=== PATIENT | female | born 1955 | race Caucasian/White ===

== ENCOUNTER 2019-03-05 08:01 | Day surgery (SDC) | payer BC, OTHER ==
[2019-03-04 11:40] LABS: BASOPHILS # (AUTO) 0.1 X10'3 (0-0.2); BASOPHILS % (AUTO) 1.2 % (0-1); EOSINOPHILS # (AUTO) 0.1 X10'3 (0-0.9); EOSINOPHILS % (AUTO) 1.3 % (0-6); LYMPHOCYTES # (AUTO) 1.6 X10'3 (1.1-4.8); LYMPHOCYTES % (AUTO) 31.6 % (21-51); MEAN CORPUSCULAR HEMOGLOBIN 31.8 PG (27.0-31.0); MEAN CORPUSCULAR HGB CONC 33.8 g/dL (33.0-36.5); MEAN CORPUSCULAR VOLUME 94.1 FL (78-98); MEAN PLATELET VOLUME 8.3 FL (7.4-10.4); MONOCYTES # (AUTO) 0.5 X10'3 (0-0.9); MONOCYTES % (AUTO) 9.6 % (2-12); NEUTROPHILS # (AUTO) 2.9 X10'3 (1.8-7.7); NEUTROPHILS % (AUTO) 56.3 % (42-75); PRE OP HEMATOCRIT 42.1 % (35.0-45.0); PRE OP HEMOGLOBIN 14.2 g/dL (12.0-16.0); PRE OP PLATELET COUNT 260 X10'3 (140-440); RED BLOOD COUNT 4.47 X10'6 (4.20-5.60); RED CELL DISTRIBUTION WIDTH 13.1 % (11.5-14.5)
[2019-03-04 11:59] LABS: ALBUMIN 4.1 G/DL (3.4-5.0); ALBUMIN/GLOBULIN RATIO 1.1 (1.1-1.5); ALKALINE PHOSPHATASE 80 IU/L (46-116); BLOOD UREA NITROGEN 15 MG/DL (7-18); BUN/CREATININE RATIO 15.8 (6.6-38.0); CALCIUM 9.1 MG/DL (8.5-10.1); CHLORIDE 108 MMOL/L (99-107); CREATININE 0.95 MG/DL (0.40-0.90); PRE OP ALT 27 U/L (30-65); PRE OP ANION GAP 7 (8-16); PRE OP AST 21 U/L (10-37); PRE OP BILIRUB, TOTAL 0.7 MG/DL (0.0-1.0); PRE OP GLUCOSE 81 MG/DL (70-104); PRE OP POTASSIUM 4.2 MMOL/L (3.4-5.1); PRE OP SODIUM 145 MMOL/L (135-145); eGFR 60 ML/MIN
[~2019-03-05] VITALS: Ht 172.7 cm; Wt 91.4 kg
[2019-03-05] VITALS (8 sets, daily range): BP systolic 115–139; BP diastolic 70–82
[~2019-03-05 08:01] MED LIST: ASPI81TA52 PO; BUPIVAcaine/PF 2.5mg/ml (0.25%) 10ml vial ONE; CALCIUM PO; CHOL200052 PO; KRILL PO; LEVO50TA PO; LIDOcaine 0.5% (5mg/ml) 50ml vial ONE; MULT-933 PO; VIT B PO; cefazolin/dext.iso 2gm/100ml 100 ML IV ONE; famotidine 10mg tablet PO ONE; ringers solution, lacted 1,000 ML IV SCH
[2019-03-05] MEDS ORDERED: ringers solution, lacted 1,000 ML IV SCH (09:40)
[2019-03-05] MEDS ORDERED: labetalol 20mg/4ml (5mg/ml) syringe IV PRN (09:40)
[2019-03-05] MEDS ORDERED: morphine 4 MG/ML inj SYRINge IV PRN ×2 (09:40)
[2019-03-05] MEDS ORDERED: ondansetron/PF 4mg/2ml inj IV PRN (09:40)
[2019-03-05] MEDS ORDERED: fentaNYL/PF 50MCG/1 ML 2ML syringe ONE (11:28)
[2019-03-05] MEDS ORDERED: midazolam 2 mg/2 ml injection ONE (11:28)
--- NOTE | 2019-03-05 11:48 | NUR ---
Received from OR via [facility], accompanied by Anesthesiologist DR KOENIG and report given by Anesthesiologist. 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 Addendum: 03/05/19 at 1215 by Cindy Walker RN Amended: Links added.
--- NOTE | 2019-03-05 12:48 | NUR ---
D/C INSTRUCTIONS GIVEN AND GONE OVER W/PT WHO VERBALIZED UNDERSTANDING, PT D/CD TO HOME VIA W/C TO PRIVATE VEHICLE W/O INCIDENT. Addendum: 03/05/19 at 1258 by Cindy Walker RN Amended: Links added.
== END 2019-03-05 12:48 | disposition home or self-care (01) ==
LOC: PAS 08:01
PROVIDERS: ATTEND Orthopaedic Surgery Hand Surgery
DX: G56.01 Carpal tunnel syndrome, right upper limb (principal); G47.33 Obstructive sleep apnea (adult) (pediatric); F17.210 Nicotine dependence, cigarettes, uncomplicated; Z86.14 Personal history of Methicillin resistant Staphylococcus aureus infection; Z88.2 Allergy status to sulfonamides; Z79.899 Other long term (current) drug therapy; Z79.82 Long term (current) use of aspirin; Z98.890 Other specified postprocedural states
CPT/HCPCS: 36415; 64721; 80053; 82948; 85025; 93005; A6222; J2001; J2250; J3010; J3490; A4215; A6449; J7120

== ENCOUNTER 2019-08-20 05:28 | Day surgery (SDC) | payer BC ==
[2019-08-16 10:04] LABS: BASOPHILS % (AUTO) 0.8 % (0-1); EOSINOPHILS # (AUTO) 0.1 X10'3 (0-0.9); EOSINOPHILS % (AUTO) 2.7 % (0-6); LYMPHOCYTES # (AUTO) 1.5 X10'3 (1.1-4.8); LYMPHOCYTES % (AUTO) 30.3 % (21-51); MEAN CORPUSCULAR HEMOGLOBIN 31.6 PG (27.0-31.0); MEAN CORPUSCULAR HGB CONC 32.9 g/dL (33.0-36.5); MEAN CORPUSCULAR VOLUME 95.8 FL (78-98); MONOCYTES # (AUTO) 0.6 X10'3 (0-0.9); MONOCYTES % (AUTO) 11.5 % (2-12); NEUTROPHILS # (AUTO) 2.7 X10'3 (1.8-7.7); NEUTROPHILS % (AUTO) 54.7 % (42-75); PRE OP HEMATOCRIT 43.1 % (35.0-45.0); PRE OP HEMOGLOBIN 14.2 g/dL (12.0-16.0); PRE OP PLATELET COUNT 283 X10'3 (140-440)
[2019-08-16 10:19] LABS: ALBUMIN 3.9 G/DL (3.4-5.0); ALKALINE PHOSPHATASE 81 IU/L (46-116); BLOOD UREA NITROGEN 11 MG/DL (7-18); BUN/CREATININE RATIO 11.6 (6.6-38.0); CALCIUM 9.7 MG/DL (8.5-10.1); CHLORIDE 109 MMOL/L (99-107); CREATININE 0.95 MG/DL (0.40-0.90); PRE OP ALT 29 U/L (30-65); PRE OP ANION GAP 6 (8-16); PRE OP AST 24 U/L (10-37); PRE OP BILIRUB, TOTAL 0.5 MG/DL (0.0-1.0); PRE OP GLUCOSE 82 MG/DL (70-104); PRE OP POTASSIUM 4.3 MMOL/L (3.4-5.1); PRE OP SODIUM 146 MMOL/L (135-145); TOTAL CARBON DIOXIDE 30.9 MMOL/L (24-32); TOTAL PROTEIN 7.7 G/DL (6.4-8.2); eGFR 59 ML/MIN
[~2019-08-20] VITALS: Ht 172.7 cm; Wt 91.4 kg
[~2019-08-20 05:28] MED LIST changes: -ASPI81TA52 PO; -BUPIVAcaine/PF 2.5mg/ml (0.25%) 10ml vial ONE; -CALCIUM PO; -CHOL200052 PO; -KRILL PO; -LIDOcaine 0.5% (5mg/ml) 50ml vial ONE; -VIT B PO; -cefazolin/dext.iso 2gm/100ml 100 ML IV ONE; -famotidine 10mg tablet PO ONE
[2019-08-20 05:30] VITALS: BP 133/73
[2019-08-20] MEDS ORDERED: famotidine 20mg tablet PO ONE (05:30)
[2019-08-20] MEDS ORDERED: LIDOcaine 1% (10mg/ml) 2ml vial ONE (05:53)
[2019-08-20] MEDS ORDERED: cefazolin/dext.iso 2gm/50ml 50 ML IV ONE (06:00)
[2019-08-20] MEDS ORDERED: BUPIVAcaine/PF 2.5 mg/ml (0.25%) 30ml vial ONE (06:34)
[2019-08-20] MEDS ORDERED: BUPIVAcaine/PF 2.5mg/ml (0.25%) 10ml vial ONE (06:34)
[2019-08-20] MEDS ORDERED: ringers solution, lacted 1,000 ML IV SCH (07:16)
[2019-08-20] MEDS ORDERED: ondansetron/PF 4mg/2ml inj IV PRN (07:20)
[2019-08-20] MEDS ORDERED: meperidine/PF 25mg/ml syringe IV PRN ×3 (07:20)
[2019-08-20] MEDS ORDERED: proCHLORperazine 10 MG/2 ml inj IV PRN (07:20)
[2019-08-20] MEDS ORDERED: morphine 4 MG/ML inj SYRINge IV PRN (07:20)
[2019-08-20] MEDS ORDERED: morphine 2 MG/ML inj. syringe IV PRN (07:20)
[2019-08-20] MEDS ORDERED: LIDOcaine 1% 30ml preserv. free vial ONE (07:22)
[2019-08-20] MEDS ORDERED: fentaNYL/PF 50MCG/1 ML 2ML syringe ONE (07:31)
[2019-08-20] MEDS ORDERED: midazolam 2 mg/2 ml injection ONE (07:32)
[2019-08-20] MEDS ORDERED: LIDOcaine 2% (20mg/ml) 5ml vial ONE (08:43)
[2019-08-20] MEDS ORDERED: propofol inj 20 ML IV ONE (08:43)
[2019-08-20] MEDS ORDERED: 0.9 % SODIUM CHLORIDE 10 ML VIAL ONE (08:50)
[2019-08-20] MEDS ORDERED: ketorolac trometh. 30mg/ml inj. ONE (08:53)
[2019-08-20 08:55] VITALS: BP 142/69
--- NOTE | 2019-08-20 08:55 | NUR ---
Received from OR via [facility] , accompanied by Anesthesiologist ADEBAYO and report given by Anesthesiolgist. PATIENT WITH 20G PIV IN RIGHT UE RUNNING LR AT 100, DENIES PAIN TO LEFT WRIST DRESSING THAT IS CDI. + CAP REFILL AND SENSATION. VSS. DONNED GLASSES UPON ARRIVAL . VSS. Addendum: 08/20/19 at 0902 by uYng Frederick RN, RN Amended: Links added.
[2019-08-20 09:05] VITALS: BP 127/78
[2019-08-20 09:15] VITALS: BP 126/73
--- NOTE | 2019-08-20 09:37 | NUR ---
\All dc criteria for discharge home has been met. IV taken out without complications. All questions answered regarding dc paperwork. Vss. Significant other present to take patient home. Dressings cdi and vital signs stable. Taken out via wheelchair to personal vehicle where patient taken home by family/friend. Addendum: 08/20/19 at 0938 by Yung Frederick RN, RN Amended: Links added.
== END 2019-08-20 09:25 | disposition home or self-care (01) ==
LOC: PAS 05:28
PROVIDERS: ATTEND Orthopaedic Surgery Hand Surgery
DX: G56.02 Carpal tunnel syndrome, left upper limb (principal); Z11.59 Encounter for screening for other viral diseases; Z98.890 Other specified postprocedural states; Z79.899 Other long term (current) drug therapy; Z72.89 Other problems related to lifestyle; Z80.9 Family history of malignant neoplasm, unspecified
CPT/HCPCS: 36415; 64721; 80053; 85025; A6222; J1885; J2001; J2250; J2704; J3010; J3490; U0003; A4215; A4615; A6449; J7120

== ENCOUNTER 2020-09-28 20:27 | Emergency (ER) | payer BC ==
[~2020-09-28] VITALS: Ht 172.7 cm; Wt 90.9 kg
[~2020-09-28 20:27] MED LIST changes: -ringers solution, lacted 1,000 ML IV SCH
[2020-09-28] MEDS ORDERED: bacitracin 15gm ointment TP ONE (23:30)
[2020-09-28] MEDS ORDERED: LIDOcaine 1% W/epiNEPHrine 1:200,000 10ml vial IJ ONE (23:30)
[2020-09-28] MEDS ORDERED: TETanus/Pertussis (Acell)/Diphther VAC/PF (Tdap-Adult) 0.5ml syringe IMVAC ONE (23:30)
--- NOTE | 2020-09-29 00:10 | NUR ---
ED provider at bedside suturing laceration- patient tolerating well.
[2020-09-29 00:47] VITALS: BP 119/79
== END 2020-09-29 00:48 | disposition home or self-care (01) ==
LOC: ER 20:28
DX: S61.412A Laceration without foreign body of left hand, initial encounter (principal); Z88.2 Allergy status to sulfonamides; Z79.899 Other long term (current) drug therapy; Z20.3 Contact with and (suspected) exposure to rabies; W26.0XXA Contact with knife, initial encounter; Y93.89 Activity, other specified; Y92.89 Other specified places as the place of occurrence of the external cause; Y99.8 Other external cause status
CPT/HCPCS: 12001; 90471; 90715; 99283